=== PATIENT | male | born 1940 | race Caucasian/White ===

== ENCOUNTER 2018-03-07 15:23 | Observation (INO) ==
--- NOTE | 2018-03-07 16:34 | Emergency Department Note ---
Disposition Clinical Impression: Nephrolithiasis, Dizziness Disposition: Still a Patient Condition: Good Referrals: Kj Rodríguez MD [Primary Care Provider] - Forms: ED Satisfaction Letter Dizziness HPI - General Chief Complaint: ED Dizziness Stated Complaint: Dizziness, sinus Time Seen by Provider: 03/07/18 15:38 Source: patient, family Mode of arrival: ambulatory Limitations: no limitations Vital Signs Reviewed: Yes - History of Present Illness HPI Narrative: The patient is a 77 year old male with a history of HTN, HLD, and unspecified dizziness that presents to the ED for dizziness. Per patient's report, He was recently treated for sinusitis with Cefdinir, which he completed on 03/04/18. Over the past two days he has been having intermittent episodes of dizziness that comes on at times when he rolls over in bed, but other times comes on randomly. He denies any association with turning of his head and denies any other exacerbating and alleviating factors. Patient is unsure how long the episodes last and is unable to describe the dizziness at present. Patient get nauseas, diaphoretic, flushed, and feels unsteady walking with the episodes. He has been having intermittent episodes of dizziness over the past year, which he describes those as room spinning, and feel similar to the dizzy episodes he had over the past couple days. He did have a CT a year ago which was unremarkable at that time. He said he was worked up for his dizziness in the past, but was never told the cause and that they said they do not think his symptoms are due to BPPV. Patient also states he continues to have sinus pressure along the frontal and maxillary sinuses distribution regardless of finishing his antibiotic course, as well as feeling "sick," but is unable to describe why he does not feel well. Patient called his PCP Dr. Kj Rodríguez who instructed him to come to the ED to be evaluated. Patient denies fever, chills, changes in vision , chest pain, shortness of breath, dysuria, urinary urgency, urinary frequency, hematuria, constipation, diarrhea, numbness, paresthesias, and liberalizing weakness. Patient also has a history of renal stones, and says he has been having difficulty urinating lately and feels that he may be trying to pass a stone. - Related Data Home Medications Medication Instructions Recorded Confirmed Amlodipine 07/29/16 Aspirin 07/29/16 Atenolol 07/29/16 Crestor 07/29/16 Enalapril Maleate 07/29/16 Tylenol 07/29/16 07/29/16 Previous Rx's Medication Instructions Recorded Albuterol Sulfate [Albuterol 2 puff IH QID 2 Days inhaler 07/29/16 Inhaler] Azithromycin [Azithromycin 6-Tab 250 mg PO PER PKG DI #6 tab 07/29/16 Pack] Benzonatate [Tessalon] 200 mg PO TID PRN #20 capsule 07/29/16 predniSONE [PredniSONE] 20 mg PO BID 5 Days tablet 07/29/16 Meclizine [Antivert] 12.5 mg PO TID PRN #20 tablet 03/17/17 Ondansetron ODT [Zofran ODT] 4 mg SL Q6HR PRN #30 tab.rapdis 03/17/17 Ciprofloxacin [Cipro] 500 mg PO BID #14 tablet 11/20/17 Allergies Allergy/AdvReac Type Severity Reaction Status Date / Time ampicillin Allergy Hives Verified 11/20/17 10:06 Penicillins Allergy Hives Verified 11/20/17 10:06 All systems ED: reviewed and negative except as stated. Review of Systems: As Per HPI Constitutional: Reports: other (diaphoresis). Denies: fever, chills Eyes: Denies: eye pain, vision change ENT ED: Denies: ear pain, throat pain Cardiovascular: Denies: chest pain, palpitations, edema, syncope Respiratory: Denies: cough, dyspnea Gastrointestinal: Reports: nausea. Denies: abdominal pain, vomiting, diarrhea, constipation, melena, hematochezia Genitourinary: Denies: urgency, dysuria, frequency, hematuria Musculoskeletal: Denies: back pain, neck pain Neurological: Reports: headache, abnormal gait (with the dizzy episodes). Denies: weakness, numbness, paresthesias Past Medical History - Past Medical History Medical history: Reports: hyperlipidemia, hypertension, kidney stones, other Surgical history: Reports: herniorrhaphy, other (bilateral rotator cuff repair) Psychiatric history: Reports: no psych history - Social History Smoking Status: Never smoker Smokeless Tobacco Status: No Alcohol use: Reports: none Drug use: Reports: none Physical Exam - General Limitations: no limitations General appearance: alert, in no apparent distress - Head Head exam: atraumatic, normocephalic, normal inspection - Eye Eye exam: Present: normal appearance, PERRL, EOMI. Absent: scleral icterus, conjunctival injection, nystagmus - ENT ENT exam: normal oropharynx, mucous membranes moist, TM's normal bilaterally, normal external ear exam - Neck Neck exam: Present: normal inspection, full ROM, trachea midline - Chest Chest inspection: Present: symmetric chest wall rise - Respiratory Respiratory exam: Present: normal lung sounds bilaterally. Absent: respiratory distress, wheezes - Cardiovascular Cardiovascular exam: Present: regular rate, normal rhythm, normal heart sounds. Absent: systolic murmur, diastolic murmur, rubs, gallop - Neurological Exam Neurological exam: Present: alert, oriented X3, CN II-XII intact, normal gait, other (sensory intact) - Expanded Neurological Exam Patient oriented to: Present: person, place, time Speech: Present: fluid speech Cerebellar function: finger to nose: Normal, heel to maldonado: Normal Motor strength - LUE: 5/5 Motor strength - RUE: 5/5 Motor strength - LLE: 5/5 Motor strength - RLE: 5/5 - Psychiatric Psychiatric exam: Present: normal affect, normal mood - Skin Skin exam: Present: warm, dry, intact, normal color Course Course Narrative: Patient is a 77 year old male that presents with nausea, dizziness, and sinus pressure. ACS, BPPV, posterior cerebellar infarct, and were considered in the differential diagnosis. CBC, BMP, UA, troponin, EKG, chest X-ray, Head CT and abdominal CT were ordered. Vital Signs Temperature 98.2 F 03/07/18 15:31 Pulse Rate 70 03/07/18 15:31 Respiratory Rate 18 03/07/18 15:31 Blood Pressure 154/82 03/07/18 15:31 O2 Sat by Pulse Oximetry 99 03/07/18 15:31 Temperature 98.2 F 03/07/18 15:31 Pulse Rate 67 03/07/18 16:47 Respiratory Rate 18 03/07/18 16:47 Blood Pressure 135/71 03/07/18 16:47 O2 Sat by Pulse Oximetry 95 03/07/18 16:47 Oxygen Delivery Oxygen Delivery Room Air Dizziness - MDM Narrative Medical decision making narrative: Patient has remained hemodynamically stable through out the ED stay. CBC, BMP, UA have showed no significant abnormalities warranting intervention at this time. Troponin was not elevated and EKG shows no signs of acute ischemia, making ACS unlikely at this time. Head CT shows no acute abnormalities. Abdominal CT showed a non-obstructing nephrolithiasis. Pt care transitioned. - Lab Data Result diagrams: 03/07/18 16:41 03/07/18 16:41 Lab Results 03/07/18 03/07/18 03/07/18 Range/Units 16:36 16:41 16:41 WBC 6.2 (4.3-11.1) K/mcL RBC 5.41 (4.19-5.50) M/mcL Hgb 16.8 (12.9-16.9) g/dL Hct 51.5 H (37.5-50.1) % MCV 95.2 (83.0-100.0) fL MCH 31.1 (28.0-33.3) pg MCHC 32.6 (31.6-35.5) g/dL RDW 13.9 (11.5-14.5) % Plt Count 163 (140-400) K/mcL MPV 11.2 (9.4-12.4) fL Immature Gran % 0.2 (0-4) % Seg Neutrophils % 59.6 % Lymphocytes % 30.0 % Monocytes % 6.8 % Eosinophils % 2.6 % Basophils % 0.8 % Neutrophils # 3.7 (1.6-8.9) K/mcL Lymphocytes # 1.9 (0.6-4.6) K/mcL Monocytes # 0.4 (0.0-1.3) K/mcL Eosinophils # 0.2 (0.0-0.6) K/mcL Basophils # 0.1 (0.0-0.2) K/mcL Sodium 135 L (136-145) mEq/L Potassium 4.0 (3.5-5.1) mEq/L Chloride 98 (98-107) mEq/L Carbon Dioxide 29 (23-29) mEq/L BUN 14 (8-23) mg/dL Creatinine 1.01 (0.70-1.30) mg/dL Est GFR ( Amer) > 60 (> 60) Est GFR (Non-Af Amer) > 60 (> 60) BUN/Creatinine Ratio 14 (6-26) Glucose 112 H (70-105) mg/dL Calculated Osmolality 281 (280-300) Calcium 9.8 (8.6-10.3) mg/dL Troponin I < 0.03 (< 0.04) ng/mL Urine Color Yellow (Yellow) Urine Clarity Clear (Clear) Urine pH 6.0 (5.0-8.0) pH Units Ur Specific [place] 1.017 (1.010-1.025) Urine Protein 30 H (Neg-Trace) mg/dL Urine Glucose (UA) Normal (Normal) mg/dL Urine Ketones Negative (Negative) mg/dL Urine Blood Trace H (Negative) Urine Nitrite Negative (Negative) Urine Bilirubin Negative (Negative) Urine Urobilinogen Normal (Normal) mg/dL Ur Leukocyte Esterase Negative (Negative) Urine Microscopic RBC 0-3 (0-3) per hpf Urine Microscopic WBC 0-3 (0-3) per hpf Ur Squamous Epith Cells Few (None-Few) per lpf Urine Bacteria None Seen (None-Few) per hpf Hyaline Casts None Seen (None-Few) per lpf Ur Culture Indicated? NO (NO)
--- NOTE | 2018-03-07 16:47 | Emergency Department Note ---
Disposition Clinical Impression: Nephrolithiasis, Dizziness, Lightheaded Disposition: Admitted As Inpatient Condition: Good Referrals: Kj Rodríguez MD [Primary Care Provider] - Forms: ED Satisfaction Letter Time of Disposition: 19:28 General Adult HPI - General Chief complaint: ED Dizziness Stated complaint: Dizziness, sinus Time Seen by Provider: 03/07/18 15:38 Source: patient, family Mode of arrival: ambulatory Limitations: no limitations Nursing Notes Reviewed: Yes Vital Signs Reviewed: Yes - History of Present Illness HPI Narrative: I have personally seen and evaluated the patient along with the Medical Student. I have reviewed and confirmed the history of present illness, review of systems, family, medical, and surgical history and agree with the documentation except as documented below. HPI/ROS: Patient presenting with lightheadedness, nausea and diaphoresis. Patient states that he has had some sinus pressure and congestion over the last week. States that makes him feel dizzy. He denies a sensation of room spinning , but states that if he rolls over in bed at night, he will feel very lightheaded. Denies any presyncopal type feeling, but states that he just feels "dizzy". Denies any changes in vision or headache. He does have difficulty with ambulation when this happens. It is not onset with sudden movement of his head and seems to occur randomly. He does report that it makes him feel very weak and tired and he intermittently gets nauseated and diaphoretic with it. States he had this happen about a year ago and had a CT of his head that was unremarkable. States she just does not feel right. He also reports that he has a history of multiple kidney stones , one of which his urologist. States that he may not be able to pass. He denies any pain but states he has not had much pain previously. He states that he has been unable to urinate and this is more typical of his pain. As reviewed in the HPI. All other systems reviewed are negative or normal. Pain Scale: 0 - Related Data Home Medications Medication Instructions Recorded Confirmed Amlodipine 07/29/16 Aspirin 07/29/16 Atenolol 07/29/16 Crestor 07/29/16 Enalapril Maleate 07/29/16 Tylenol 07/29/16 07/29/16 Previous Rx's Medication Instructions Recorded Albuterol Sulfate [Albuterol 2 puff IH QID 2 Days inhaler 07/29/16 Inhaler] Azithromycin [Azithromycin 6-Tab 250 mg PO PER PKG DI #6 tab 07/29/16 Pack] Benzonatate [Tessalon] 200 mg PO TID PRN #20 capsule 07/29/16 predniSONE [PredniSONE] 20 mg PO BID 5 Days tablet 07/29/16 Meclizine [Antivert] 12.5 mg PO TID PRN #20 tablet 03/17/17 Ondansetron ODT [Zofran ODT] 4 mg SL Q6HR PRN #30 tab.rapdis 03/17/17 Ciprofloxacin [Cipro] 500 mg PO BID #14 tablet 11/20/17 Allergies Allergy/AdvReac Type Severity Reaction Status Date / Time ampicillin Allergy Hives Verified 11/20/17 10:06 Penicillins Allergy Hives Verified 11/20/17 10:06 Review of Systems: As reviewed in the HPI. All other systems reviewed are negative or normal. Constitutional: Denies: fever, chills Eyes: Denies: eye pain, vision change ENT ED: Denies: ear pain, throat pain Cardiovascular: Denies: chest pain, palpitations, edema, syncope Respiratory: Denies: cough, dyspnea Gastrointestinal: Reports: nausea. Denies: abdominal pain, vomiting, diarrhea, constipation, melena, hematochezia Genitourinary: Denies: urgency, dysuria, frequency, hematuria Musculoskeletal: Denies: back pain, neck pain Neurological: Reports: headache. Denies: weakness, numbness, paresthesias Past Medical History - Past Medical History Attestation: Yes The following information was validated with the patient. Source: patient, old records reviewed Medical history: Reports: hyperlipidemia, hypertension, kidney stones, other Surgical history: Reports: herniorrhaphy, other (bilateral rotator cuff repair) Psychiatric history: Reports: no psych history - Social History Smoking Status: Never smoker Smokeless Tobacco Status: No Alcohol use: Reports: none Drug use: Reports: none Physical Exam CONSTITUTIONAL: [well appearing, alert and in no acute distress] EYES: [EOMI, clear conjunctiva, PERRLA] HENT: [Normocephalic, atraumatic, moist mucus membranes, normal oropharynx] NECK: [normal inspection, full ROM, trachea midline, no obvious swelling] PULMONARY: [normal lung sounds bilaterally, normal chest rise and fall, no respiratory distress or stridor, no wheezes, no rales, no rhonchi CARDIOVASCULAR: [regular rate, regular rhythm, normal heart sounds, + soft systolic murmurs, distal extremities are warm and well perfused] GASTROINSTESTINAL: [soft, non-tender, non-rigid, non-distended, no guarding, no rebound, normal bowel sounds] GENITOURINARY/RECTAL: [deferred] NEUROLOGIC: [Alert, oriented x3, normal speech, moves all extremities, normal gait, cranial nerves II through XII intact, normal cerebellar function] EXTREMITIES: [Normal inspection, full ROM, no tenderness, no pedal edema, normal capillary refill] MUSCULOSKELETAL: [no gross deformities, atraumatic] SKIN: [No cyanosis, no diaphoresis, normal color, warm, no rash] PSYCHIATRIC: [normal mood and affect] - General Limitations: no limitations General appearance: alert, in no apparent distress Course Vital Signs Temperature 98.2 F 03/07/18 15:31 Pulse Rate 70 03/07/18 15:31 Respiratory Rate 18 03/07/18 15:31 Blood Pressure 154/82 03/07/18 15:31 O2 Sat by Pulse Oximetry 99 03/07/18 15:31 Temperature 98.2 F 03/07/18 15:31 Pulse Rate 72 03/07/18 19:21 Respiratory Rate 18 03/07/18 19:21 Blood Pressure 154/89 03/07/18 19:21 O2 Sat by Pulse Oximetry 95 03/07/18 19:21 Oxygen Delivery Oxygen Delivery Room Air Medical Decision Making - Lab Data Result diagrams: 03/07/18 16:41 03/07/18 16:41 Lab Results 03/07/18 03/07/18 03/07/18 Range/Units 16:36 16:41 16:41 WBC 6.2 (4.3-11.1) K/mcL RBC 5.41 (4.19-5.50) M/mcL Hgb 16.8 (12.9-16.9) g/dL Hct 51.5 H (37.5-50.1) % MCV 95.2 (83.0-100.0) fL MCH 31.1 (28.0-33.3) pg MCHC 32.6 (31.6-35.5) g/dL RDW 13.9 (11.5-14.5) % Plt Count 163 (140-400) K/mcL MPV 11.2 (9.4-12.4) fL Immature Gran % 0.2 (0-4) % Seg Neutrophils % 59.6 % Lymphocytes % 30.0 % Monocytes % 6.8 % Eosinophils % 2.6 % Basophils % 0.8 % Neutrophils # 3.7 (1.6-8.9) K/mcL Lymphocytes # 1.9 (0.6-4.6) K/mcL Monocytes # 0.4 (0.0-1.3) K/mcL Eosinophils # 0.2 (0.0-0.6) K/mcL Basophils # 0.1 (0.0-0.2) K/mcL Sodium 135 L (136-145) mEq/L Potassium 4.0 (3.5-5.1) mEq/L Chloride 98 (98-107) mEq/L Carbon Dioxide 29 (23-29) mEq/L BUN 14 (8-23) mg/dL Creatinine 1.01 (0.70-1.30) mg/dL Est GFR ( Amer) > 60 (> 60) Est GFR (Non-Af Amer) > 60 (> 60) BUN/Creatinine Ratio 14 (6-26) Glucose 112 H (70-105) mg/dL Calculated Osmolality 281 (280-300) Calcium 9.8 (8.6-10.3) mg/dL Troponin I < 0.03 (< 0.04) ng/mL Urine Color Yellow (Yellow) Urine Clarity Clear (Clear) Urine pH 6.0 (5.0-8.0) pH Units Ur Specific [place] 1.017 (1.010-1.025) Urine Protein 30 H (Neg-Trace) mg/dL Urine Glucose (UA) Normal (Normal) mg/dL Urine Ketones Negative (Negative) mg/dL Urine Blood Trace H (Negative) Urine Nitrite Negative (Negative) Urine Bilirubin Negative (Negative) Urine Urobilinogen Normal (Normal) mg/dL Ur Leukocyte Esterase Negative (Negative) Urine Microscopic RBC 0-3 (0-3) per hpf Urine Microscopic WBC 0-3 (0-3) per hpf Ur Squamous Epith Cells Few (None-Few) per lpf Urine Bacteria None Seen (None-Few) per hpf Hyaline Casts None Seen (None-Few) per lpf Ur Culture Indicated? NO (NO)
[2018-03-07 16:49] LABS: Basophils # 0.1 K/mcL (0.0-0.2); Basophils % 0.8 %; Eosinophils # 0.2 K/mcL (0.0-0.6); Eosinophils % 2.6 %; Hematocrit 51.5 % (37.5-50.1); Hemoglobin 16.8 g/dL (12.9-16.9); Immature Granulocytes % 0.2 % (0-4); Lymphocytes # 1.9 K/mcL (0.6-4.6); Mean Corpuscular HGB Conc 32.6 g/dL (31.6-35.5); Mean Corpuscular Hemoglobin 31.1 pg (28.0-33.3); Mean Corpuscular Volume 95.2 fL (83.0-100.0); Mean Platelet Volume 11.2 fL (9.4-12.4); Monocytes # 0.4 K/mcL (0.0-1.3); Monocytes % 6.8 %; Neutrophils # 3.7 K/mcL (1.6-8.9); Platelet Count 163 K/mcL (140-400); Red Blood Count 5.41 M/mcL (4.19-5.50); Red Cell Distribution Width 13.9 % (11.5-14.5); Segmented Neutrophils % 59.6 %
[2018-03-07 16:50] LABS: Bilirubin,Urine Negative (Negative); Blood,Urine Trace (Negative); Clarity,Urine Clear (Clear); Color,Urine Yellow (Yellow); Glucose,Urine (UA) Normal (Normal); Ketones,Urine Negative (Negative); Leukocyte Esterase,Urine Negative (Negative); Nitrite,Urine Negative (Negative); Protein,Urine 30 mg/dL (Neg-Trace); Specific Gravity,Urine 1.017 (1.010-1.025); Urobilinogen,Urine Normal (Normal)
[2018-03-07 16:52] LABS: Bacteria,Urine None Seen per hpf (None-Few); Hyaline Casts,Urine None Seen per lpf (None-Few); RBC,Urine 0-3 per hpf (0-3); Squamous Epithelial Cell,Urine Few per lpf (None-Few); WBC,Urine 0-3 per hpf (0-3)
[2018-03-07 17:11] LABS: BUN/Creatinine Ratio 14 (6-26); Blood Urea Nitrogen 14 mg/dL (8-23); Calcium 9.8 mg/dL (8.6-10.3); Carbon Dioxide 29 mEq/L (23-29); Chloride 98 mEq/L (98-107); Glucose 112 mg/dL (70-105); Osmolality,Calculated 281 (280-300); Sodium 135 mEq/L (136-145); eGFR For Non-African Americans > 60 (> 60)
[2018-03-07 17:12] LABS: Troponin I < 0.03 ng/mL (< 0.04)
--- NOTE | 2018-03-07 18:53 | Emergency Department Note ---
Disposition Clinical Impression: Nephrolithiasis, Dizziness, Lightheaded Disposition: Admitted As Inpatient Condition: Good General Adult HPI - General Chief complaint: ED Dizziness Stated complaint: Dizziness, sinus Time Seen by Provider: 03/07/18 15:38 Source: patient, family Mode of arrival: ambulatory Limitations: no limitations - History of Present Illness Pain Scale: 0 - Related Data Home Medications Medication Instructions Recorded Confirmed Aspirin [Lo-Dose Aspirin EC] 81 mg PO DAILY 03/07/18 03/07/18 Atenolol [Tenormin] 50 mg PO DAILY 03/07/18 03/07/18 Enalapril Maleate [Vasotec] 20 mg PO DAILY 03/07/18 03/07/18 Omeprazole [PriLOSEC] 20 mg PO DAILY PRN 03/07/18 03/07/18 Rosuvastatin Calcium [Crestor] 10 mg PO DAILY 03/07/18 03/07/18 amLODIPine [Norvasc] 5 mg PO DAILY 03/07/18 03/07/18 Tamsulosin HCl 0.4 mg PO DAILY 03/08/18 03/08/18 Previous Rx's Medication Instructions Recorded Meclizine [Antivert] 25 mg PO TID PRN #30 tablet 03/09/18 Ondansetron ODT [Zofran ODT] 4 mg SL Q6HR PRN #15 tab.rapdis 03/09/18 Allergies Allergy/AdvReac Type Severity Reaction Status Date / Time ampicillin Allergy Hives Verified 03/07/18 22:19 Penicillins Allergy Hives Verified 03/07/18 22:19 Constitutional: Reports: other (diaphoresis). Denies: fever, chills Eyes: Denies: eye pain, vision change ENT ED: Denies: ear pain, throat pain Cardiovascular: Denies: chest pain, palpitations, edema, syncope Respiratory: Denies: cough, dyspnea Gastrointestinal: Reports: nausea. Denies: abdominal pain, vomiting, diarrhea, constipation, melena, hematochezia Genitourinary: Denies: urgency, dysuria, frequency, hematuria Musculoskeletal: Denies: back pain, neck pain Neurological: Reports: headache, abnormal gait (with the dizzy episodes). Denies: weakness, numbness, paresthesias Past Medical History - Past Medical History Medical history: Reports: hyperlipidemia, hypertension, kidney stones, other Surgical history: Reports: herniorrhaphy, other (bilateral rotator cuff repair) Psychiatric history: Reports: no psych history - Social History Smoking Status: Never smoker Smokeless Tobacco Status: No Alcohol use: Reports: none Drug use: Reports: none Physical Exam - General Limitations: no limitations General appearance: alert, in no apparent distress Course Vital Signs Temperature 98.2 F 03/07/18 15:31 Pulse Rate 70 03/07/18 15:31 Respiratory Rate 18 03/07/18 15:31 Blood Pressure 154/82 03/07/18 15:31 O2 Sat by Pulse Oximetry 99 03/07/18 15:31 Temperature 97.7 F 03/09/18 07:34 Pulse Rate 60 03/09/18 07:34 Respiratory Rate 16 03/09/18 07:34 Blood Pressure 107/68 03/09/18 07:34 O2 Sat by Pulse Oximetry 95 03/09/18 09:00 Oxygen Delivery Oxygen Delivery Room Air Medical Decision Making - Lab Data Result diagrams: 03/08/18 03:48 03/08/18 03:48 Lab Results 03/07/18 03/07/18 03/07/18 Range/Units 16:36 16:41 16:41 WBC 6.2 (4.3-11.1) K/mcL RBC 5.41 (4.19-5.50) M/mcL Hgb 16.8 (12.9-16.9) g/dL Hct 51.5 H (37.5-50.1) % MCV 95.2 (83.0-100.0) fL MCH 31.1 (28.0-33.3) pg MCHC 32.6 (31.6-35.5) g/dL RDW 13.9 (11.5-14.5) % Plt Count 163 (140-400) K/mcL MPV 11.2 (9.4-12.4) fL Immature Gran % 0.2 (0-4) % Seg Neutrophils % 59.6 % Lymphocytes % 30.0 % Monocytes % 6.8 % Eosinophils % 2.6 % Basophils % 0.8 % Neutrophils # 3.7 (1.6-8.9) K/mcL Lymphocytes # 1.9 (0.6-4.6) K/mcL Monocytes # 0.4 (0.0-1.3) K/mcL Eosinophils # 0.2 (0.0-0.6) K/mcL Basophils # 0.1 (0.0-0.2) K/mcL Sodium 135 L (136-145) mEq/L Potassium 4.0 (3.5-5.1) mEq/L Chloride 98 (98-107) mEq/L Carbon Dioxide 29 (23-29) mEq/L BUN 14 (8-23) mg/dL Creatinine 1.01 (0.70-1.30) mg/dL Est GFR ( Amer) > 60 (> 60) Est GFR (Non-Af Amer) > 60 (> 60) BUN/Creatinine Ratio 14 (6-26) Glucose 112 H (70-105) mg/dL Calculated Osmolality 281 (280-300) Calcium 9.8 (8.6-10.3) mg/dL Troponin I < 0.03 (< 0.04) ng/mL Urine Color Yellow (Yellow) Urine Clarity Clear (Clear) Urine pH 6.0 (5.0-8.0) pH Units Ur Specific [place] 1.017 (1.010-1.025) Urine Protein 30 H (Neg-Trace) mg/dL Urine Glucose (UA) Normal (Normal) mg/dL Urine Ketones Negative (Negative) mg/dL Urine Blood Trace H (Negative) Urine Nitrite Negative (Negative) Urine Bilirubin Negative (Negative) Urine Urobilinogen Normal (Normal) mg/dL Ur Leukocyte Esterase Negative (Negative) Urine Microscopic RBC 0-3 (0-3) per hpf Urine Microscopic WBC 0-3 (0-3) per hpf Ur Squamous Epith Cells Few (None-Few) per lpf Urine Bacteria None Seen (None-Few) per hpf Hyaline Casts None Seen (None-Few) per lpf Ur Culture Indicated? NO (NO) Attestation Statement - Attestation Attestation: I examined this patient and my medical decision-making was reviewed with the Resident Physician. I agree with the documented findings, disposition and treatment plan as described except to the extent set forth below. Patient with intermittent episodes of diaphoresis, nausea and dizziness. Denies vertigo, denies syncope or presyncope. Denies chest pain. He has a normal neurological exam. No obvious ischemia on his EKG. I am concerned this may be an anginal equivalent. He also describes his dizziness poorly, it is certainly possible that there is a problem in the posterior fossa that could be causing some of these symptoms. At this point, I believe the patient requires admission for observation and further testing.
[2018-03-07] MEDS ORDERED: Gadolinium Contrast Agent (WT Based) IV PRN (20:11)
[2018-03-07] MEDS ORDERED: Ondansetron ODT 4 MG TAB.RAPDIS SL PRN (20:24)
--- NOTE | 2018-03-07 20:33 | Internal Med History&Physical ---
Date of Encounter: 03/07/18 Time of Encounter: 20:30 Internal Medicine - H&P: HPI Admitted From: Home Plans for Post Hospital Care: Home History of present illness: Jonn Moreno is a 77-year-old man with a history of hyperlipidemia, hypertension and nephrolithiasis who presents to the emergency room with a complaint of dizziness. States that he has been having dizziness and vertigo for many months starting this year but cannot specify when exactly it commenced. He says he initially since that the room was spinning and cannot specify for how long it lasts but is usually accompanied by a weird sensation in his stomach as well. He does feel as though it worsens with positional movements of his head and neck moving side to side in bed and sometimes when getting up from bed as well. He denies associated chest pain, dyspnea or diaphoresis. He denies a history of smoking use or illicit drug use. Surgical history remarkable for bilateral rotator cuff repair and herniorrhaphy. No psychiatric history obtained. He denies any history of heart disease or cerebrovascular disease in the past. He reports adherence to his antihypertensives. This time he is in no acute distress and feels stable. In the ER he had a head CT done which was unremarkable and abdominal imaging also done due to his complaint of this nausea-type sensation in his stomach. Lab work was grossly unremarkable. He is admitted for further observation and neurology assessment. Past Med Surg Social Fam HX - Past Medical History Medical history: hyperlipidemia, hypertension, kidney stones, other Psychiatric history: no psych history - Past Surgical History Surgical History: herniorrhaphy, other (bilateral rotator cuff repair) - Social History Smoking Status: Never smoker Smokeless Tobacco Status: No Alcohol use: none Drug use: none Internal Medicine - H&P: Meds Albuterol Sulfate [Albuterol Inhaler] 2 puff IH QID 2 Days inhaler 07/29/16 [Rx ] Amlodipine 07/29/16 [History] Aspirin 07/29/16 [History] Atenolol 07/29/16 [History] Azithromycin [Azithromycin 6-Tab Pack] 250 mg PO PER PKG DI #6 tab 07/29/16 [Rx] Benzonatate [Tessalon] 200 mg PO TID PRN #20 capsule 07/29/16 [Rx] Crestor 07/29/16 [History] Enalapril Maleate 07/29/16 [History] Tylenol 07/29/16 [History] predniSONE [PredniSONE] 20 mg PO BID 5 Days tablet 07/29/16 [Rx] Meclizine [Antivert] 12.5 mg PO TID PRN #20 tablet 03/17/17 [Rx] Ondansetron ODT [Zofran ODT] 4 mg SL Q6HR PRN #30 tab.rapdis 03/17/17 [Rx] Ciprofloxacin [Cipro] 500 mg PO BID #14 tablet 11/20/17 [Rx] 3 Allergy/AdvReac Type Severity Reaction Status Date / Time ampicillin Allergy Hives Verified 11/20/17 10:06 Penicillins Allergy Hives Verified 11/20/17 10:06 All Systems PM: A 10-system review of systems was performed and is negative for pertinent findings except as documented above in the HPI. - Constitutional Vitals: Temp Pulse Resp BP Pulse Ox 98.2 F 72 18 138/85 95 03/07/18 15:31 03/07/18 19:21 03/07/18 20:13 03/07/18 20:13 03/07/18 19:21 Exam: Vitals: Reviewed General: Well-developed male lying comfortably in bed in no acute distress Skin: Warm and supple HEENT: Moist mucous membranes. No conjunctivae pallor. No nystagmus. EOMI. PERRLA. Neck: No lymphadenopathy. No JVD. No carotid bruits. No palpable thyroid. Chest: Normal thoracic expansion. Normal breath sounds. Clear to auscultation. Heart: Normal S1 & S2; rhythmic. No rubs or murmurs. Abdomen: Non-distended, soft and non-tender to palpation. No peritoneal reaction. Extremities: No clubbing, cyanosis or edema. No calf tenderness. Normal distal pulses. Neurological: Awake, alert and oriented to person, place and time. No focal deficits. Romberg negative. Psych: Affect appropriate. Internal Med - H&P Results - Labs CBC & Chem 7: 03/07/18 16:41 03/07/18 16:41 - Assessment and plan (1) Dizziness Current Visit: Yes Status: Acute Assessment and plan: Unclear etiology. Based on his reported symptoms and my physical examination, it may be benign positional vertigo. However given his age and risk factors, it would be prudent to rule out a posterior circulation infarction there MRI brain will be obtained. He will benefit from neurology consultation as well. Remain on fall precautions, continue meclizine prn. (2) Hypertension Current Visit: Yes Status: Acute Assessment and plan: Well controlled for now. Will resume once his antihypertensive agents are confirmed. Qualifiers: Hypertension type: essential hypertension Qualified Code(s): I10 - Essential (primary) hypertension (3) Hyperlipidemia Current Visit: Yes Status: Acute Assessment and plan: Reported. Will check lipid panel and should continue statin therapy per primary physician. Qualifiers: Hyperlipidemia type: unspecified Qualified Code(s): E78.5 - Hyperlipidemia , unspecified (4) Nephrolithiasis Current Visit: Yes Status: Chronic Assessment and plan: Asymptomatic and non-obstructive. Should have urology f/u as OP. (5) DVT prophylaxis Current Visit: Yes Status: Acute Assessment and plan: SubQ heparin. - Time Spent With Patient Total time spent is greater than 50% in coordination of care (as documented) at patient's floor/unit and/or counseling patient: Greater than 35 minutes
[2018-03-08] MEDS: *HR* Heparin 5,000 UNIT/ML VIAL SQ SCH ×4 (00:30→21:06)
[2018-03-08 04:26] LABS: Basophils # 0.1 K/mcL (0.0-0.2); Basophils % 0.7 %; Eosinophils # 0.1 K/mcL (0.0-0.6); Eosinophils % 1.4 %; Hematocrit 50.4 % (37.5-50.1); Hemoglobin 16.8 g/dL (12.9-16.9); Immature Granulocytes % 0.2 % (0-4); Lymphocytes # 2.9 K/mcL (0.6-4.6); Lymphocytes % 31.3 %; Mean Corpuscular HGB Conc 33.3 g/dL (31.6-35.5); Mean Corpuscular Hemoglobin 31.5 pg (28.0-33.3); Mean Corpuscular Volume 94.4 fL (83.0-100.0); Mean Platelet Volume 11.3 fL (9.4-12.4); Monocytes # 0.8 K/mcL (0.0-1.3); Monocytes % 8.8 %; Neutrophils # 5.3 K/mcL (1.6-8.9); Platelet Count 179 K/mcL (140-400); Red Blood Count 5.34 M/mcL (4.19-5.50); Red Cell Distribution Width 14.4 % (11.5-14.5); Segmented Neutrophils % 57.6 %
[2018-03-08 04:51] LABS: Alanine Aminotransferase 25 Units/L (7-52); Albumin 4.6 g/dL (3.5-5.7); Albumin/Globulin Ratio 1.5 (1.1-2.2); Alkaline Phosphatase 69 Units/L (34-104); Aspartate Amino Transferase 23 Units/L (13-39); BUN/Creatinine Ratio 17 (6-26); Bilirubin,Total 0.8 mg/dL (0.3-1.0); Blood Urea Nitrogen 18 mg/dL (8-23); Calcium 9.8 mg/dL (8.6-10.3); Carbon Dioxide 27 mEq/L (23-29); Chloride 99 mEq/L (98-107); Chol/HDL Ratio 3.3 (0-4.9); Cholesterol 173 mg/dL (< 200); Globulin 3.1 g/dL (2.4-3.5); Glucose 131 mg/dL (70-105); HDL Cholesterol 52 mg/dL (40-59); LDL Cholesterol,Calculated 100 mg/dL (0-99); Osmolality,Calculated 286 (280-300); Potassium 3.9 mEq/L (3.5-5.1); Sodium 136 mEq/L (136-145); Total Protein 7.7 g/dL (6.4-8.9); Triglycerides 104 mg/dL (< 150); eGFR For Non-African Americans > 60 (> 60)
[2018-03-08 05:03] LABS: Thyroid Stimulating Hormone 3.908 mcIU/mL (0.340-5.600)
[2018-03-08 07:07] LABS: Estimated Average Glucose 126 mg/dl
--- NOTE | 2018-03-08 09:23 | Internal Med Progress Note ---
Hospitalist Progress Note - Encounter Date of Encounter: 03/08/18 Time of Encounter: 09:19 - Subjective Interval History: Patient seen and evaluated at bedside, reports that he still feels dizzy and at some point last night and this morning he felt like the room was spinning around. Denies nausea but reports GERD-like symptoms. Denies chest pain, shortness of breath. - Exam Vitals: Temp Pulse Resp BP Pulse Ox 97.8 F 78 18 130/78 95 03/08/18 07:17 03/08/18 07:17 03/08/18 07:17 03/08/18 07:17 03/08/18 07:17 Exam: General: Patient is alert, oriented x4, no acute distress Head: atraumatic, normocephalic, Eye: normal appearance, PERRL, no scleral icterus, no conjunctival injection ENT: mucous membranes moist, normal external ear exam Neck: normal inspection, trachea midline, full ROM, no carotid bruits Respiratory: Clear to auscultation bilaterally, no wheezing, rales or crackles. Cardiovascular: RRR, normal s1 and s2, No rubs, gallops, or murmors. Abdomen: Obese, Bowel sounds present normoactive x-4 quadrants. Abdomen is soft , nondistended. No guarding or rebound. Musculoskeletal: Spontaneously moving all extremities. no edema, no calf tenderness Neuro: Alert and oriented x4. Cranial nerves 2-12 is intact. Not aphasic, gait is steady, rapid hand movements intact, [id number] intact. Psych: Patient's affect is normal - Assessment and Plan (1) Dizziness Current Visit: Yes Status: Acute Assessment and Plan: Possible secondary to Benign Positional vertigo. As per patient he saw a vertigo specialist about a year ago when he started experiencing Dizziness spells. At that time he was sent to a vertigo center where he had therapy which resolved his symptoms. MRI brain done in this admission: No acute intra-cranial process. Plan As patient continues to feel dizzy, will increase Meclizine to 25mg/PO TID ENT consulted will follow recommendations (2) Hypertension Current Visit: Yes Status: Acute Assessment and Plan: Blood pressure is well controlled. Continue Amlodipine, atenolol and lisinopril. will continue monitoring for adjustment if needed. (3) Hyperlipidemia Current Visit: Yes Status: Acute Assessment and Plan: Continue atorvastatin 20 mg by mouth daily. (4) Nephrolithiasis Current Visit: Yes Status: Chronic (5) DVT prophylaxis Current Visit: Yes Status: Acute Assessment and Plan: On heparin 5000 units subcutaneous every 8 hours for DVT prophylaxis. - Summary of Assessment and Plan Summary of Assessment and Plan: Patient continues to feel dizzy, meclizine dose increased. Possible discharge tomorrow morning. - Time Spent with Patient Total time spent is greater than 50% in coordination of care (as documented) at patient's floor/unit and/or counseling patient: 25 - 35 minutes Plan of Care Discussed with: patient (the family and Nurse.) Internal Medicine: Result - Labs CBC & Chem 7: 03/08/18 03:48 03/08/18 03:48 Labs: Short CBC 03/08/18 Range/Units 03:48 WBC 9.1 (4.3-11.1) K/mcL Hgb 16.8 (12.9-16.9) g/dL Hct 50.4 H (37.5-50.1) % Plt Count 179 (140-400) K/mcL Neutrophils # 5.3 (1.6-8.9) K/mcL BMP 03/08/18 03:48 Sodium 136 Potassium 3.9 Chloride 99 Carbon Dioxide 27 BUN 18 Creatinine 1.07 Glucose 131 H Calcium 9.8 Liver Function 03/08/18 Range/Units 03:48 Total Bilirubin 0.8 (0.3-1.0) mg/dL AST 23 (13-39) Units/L ALT 25 (7-52) Units/L Alkaline Phosphatase 69 (34-104) Units/L Albumin 4.6 (3.5-5.7) g/dL - Impressions Impressions Brain MRI 03/07/18 20:09 IMPRESSION: Mild multifocal small-vessel ischemic change No acute hemorrhage. No acute infarct. No focal significant arterial narrowing in the head. No aneurysm. No focal significant arterial narrowing in the neck D/ / Tico Salas / Tico Salas Interpreting Provider: Tico Salas Head MRA 03/07/18 20:11 IMPRESSION: Mild multifocal small-vessel ischemic change No acute hemorrhage. No acute infarct. No focal significant arterial narrowing in the head. No aneurysm. No focal significant arterial narrowing in the neck D/ / Tico Salas / Tico Salas Interpreting Provider: Tico Salas Neck MRA 03/07/18 20:11 IMPRESSION: Mild multifocal small-vessel ischemic change No acute hemorrhage. No acute infarct. No focal significant arterial narrowing in the head. No aneurysm. No focal significant arterial narrowing in the neck D/ / Tico Salas / Tico Salas Interpreting Provider: Tico Salas Consult Discharge Plan - Plan Referrals: Anne,Kj Colon MD [Primary Care Provider] - (2) Hypertension Qualifiers: Hypertension type: essential hypertension Qualified Code(s): I10 - Essential (primary) hypertension (3) Hyperlipidemia Qualifiers: Hyperlipidemia type: unspecified Qualified Code(s): E78.5 - Hyperlipidemia, unspecified
[2018-03-08] MEDS: amLODIPine 5 MG TABLET PO SCH (10:00)
[2018-03-08] MEDS: Aspirin Enteric Coated 81 MG Tablet PO SCH (10:00)
[2018-03-08] MEDS: Lisinopril 20 MG TABLET PO SCH (10:01)
--- NOTE | 2018-03-08 11:52 | Neurology - Consult Note ---
Date of Encounter: 03/08/18 Time of Encounter: 08:00 History of Present Illness Chief complaint: diziness and nasuea HPI: Mr. Moreno is a 77 year old male with PMH significant for BPPV, HTN who presented to ER with recurrent dizziness and nausea. Patient interviewed in the presence of his . He has history of BPPV and had been evaluated with ENT and has had three sessions of vestibular rehab in the past. He reports spells of room spinning sensation usually occurs when he turned his head to the right side, or if turns to left and then right would cause the vertigo. The symptoms usually occur and he would return his head and keep still and then the vertigo would disappear. This time he also has some headache, neck pain, watery eyes and thought to be sinus infection and was given antibiotics for about 10 days. MRI of brain, MRA of brain and neck showed no acute changes. Mild small vessel ischemia reported. Patient is resting in the chair comfortably. He states that when he moves he feels mildly nauseated. But no significant dizziness when keeping still. He has right sided tinnitus Past Med Surg Social Fam HX - Past Medical History Medical history: hyperlipidemia, hypertension, kidney stones, other Psychiatric history: no psych history - Past Surgical History Surgical History: herniorrhaphy, other - Social History Smoking Status: Never smoker Smokeless Tobacco Status: No Alcohol use: none Drug use: none - Family History Father Living Status: Cause of : [place] Hx Family Cardiac Disorders: Yes Mother Living Status: Cause of : luekemia Medications and Allergies Aspirin [Lo-Dose Aspirin EC] 81 mg PO DAILY 03/07/18 [History] Atenolol [Tenormin] 50 mg PO DAILY 03/07/18 [History] Enalapril Maleate [Vasotec] 20 mg PO DAILY 03/07/18 [History] Omeprazole [PriLOSEC] 20 mg PO DAILY PRN 03/07/18 [History] Rosuvastatin Calcium [Crestor] 10 mg PO DAILY 03/07/18 [History] amLODIPine [Norvasc] 5 mg PO DAILY 03/07/18 [History] Tamsulosin HCl 0.4 mg PO DAILY 03/08/18 [History] 3 Allergy/AdvReac Type Severity Reaction Status Date / Time ampicillin Allergy Hives Verified 09/27/18 22:19 Penicillins Allergy Hives Verified 03/07/18 22:19 All Systems: The remainder of the systems were reviewed and are negative Physical Examination - Vital Signs Vital Signs: Initial Vital Signs Temp Pulse Resp BP Pulse Ox 98.2 F 70 18 154/82 99 03/07/18 15:31 03/07/18 15:31 03/07/18 15:31 03/07/18 15:31 03/07/18 15:31 - Constitutional General appearance: comfortable - Neurologic Sensorimotor examination: intact Detailed motor examination: full strength in all major muscle groups Motor examination - right side: 5/5: deltoids, biceps, triceps, wrist flexion, wrist extension, clay artisan, hip flexors, tibialis Anterior, quadriceps, toe extension (EHL), plantarflexion Motor examination - left side: 5/5: deltoids, biceps, triceps, wrist flexion, wrist extension, hip flexors, clay artisan, quadriceps, tibialis Anterior, toe extension (EHL), plantarflexion Results - Laboratory Findings CBC and BMP: 03/08/18 03:48 03/08/18 03:48 Abnormal lab findings: Abnormal lab results Hct 50.4 % (37.5-50.1) H 03/08/18 03:48 Glucose 131 mg/dL (70-105) H 03/08/18 03:48 Hemoglobin A1c 6.0 % (-5.6) H 03/08/18 03:48 LDL Cholesterol, Calc 100 mg/dL (0-99) H 03/08/18 03:48 Urine Protein 30 mg/dL (Neg-Trace) H 03/07/18 16:36 Urine Blood Trace (Negative) H 03/07/18 16:36 Consult Discharge Plan - Plan Referrals: Kj Rodríguez MD [Primary Care Provider] -
--- NOTE | 2018-03-08 13:09 | Neurology - Consult Note ---
Date of Encounter: 03/08/18 Time of Encounter: 11:00 Assessment and Plan (1) Dizziness Current Visit: Yes Status: Acute Patient has been experiencing recurrent episodes of vertigo associated with nausea, with right tinnitus. 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 Symptoms are most consistent with BPPV, and other intermittent vestibular dysfunction also possible such as Meniere syndrome although BPPV appears more likely. He is on Meclizine now. Will continue that and he should have ENT follow up, hearing testing VNG testing and may benefit from vestibular rehab Will sign off at this time. Please call if any questions History of Present Illness Chief complaint: Dizziness nausea HPI: Chief complaint: diziness and nasuea HPI: Mr. Moreno is a 77 year old male with PMH significant for BPPV, HTN who presented to ER with recurrent dizziness and nausea. Patient interviewed in the presence of his . He has history of BPPV and had been evaluated with ENT and has had three sessions of vestibular rehab in the past. He reports spells of room spinning sensation usually occurs when he turned his head to the right side, or if turns to left and then right would cause the vertigo. The symptoms usually occur and he would return his head and keep still and then the vertigo would disappear. This time he also has some headache, neck pain, watery eyes and thought to be sinus infection and was given antibiotics for about 10 days. MRI of brain, MRA of brain and neck showed no acute changes. Mild small vessel ischemia reported. Patient is resting in the chair comfortably. He states that when he moves he feels mildly nauseated. But no significant dizziness when keeping still. He has right sided tinnitus. Past Med Surg Social Fam HX - Past Medical History Medical history: hyperlipidemia, hypertension, kidney stones, other Psychiatric history: no psych history - Past Surgical History Surgical History: herniorrhaphy, other - Social History Smoking Status: Never smoker Smokeless Tobacco Status: No Alcohol use: none Drug use: none - Family History Father Living Status: Cause of : [place] Hx Family Cardiac Disorders: Yes Mother Living Status: Cause of : luekemia Medications and Allergies Aspirin [Lo-Dose Aspirin EC] 81 mg PO DAILY 03/07/18 [History] Atenolol [Tenormin] 50 mg PO DAILY 03/07/18 [History] Enalapril Maleate [Vasotec] 20 mg PO DAILY 03/07/18 [History] Omeprazole [PriLOSEC] 20 mg PO DAILY PRN 03/07/18 [History] Rosuvastatin Calcium [Crestor] 10 mg PO DAILY 03/07/18 [History] amLODIPine [Norvasc] 5 mg PO DAILY 03/07/18 [History] Tamsulosin HCl 0.4 mg PO DAILY 03/08/18 [History] 3 Allergy/AdvReac Type Severity Reaction Status Date / Time ampicillin Allergy Hives Verified 03/07/18 22:19 Penicillins Allergy Hives Verified 03/07/18 22:19 All Systems: The remainder of the systems were reviewed and are negative Physical Examination - Vital Signs Vital Signs: Initial Vital Signs Temp Pulse Resp BP Pulse Ox 98.2 F 70 18 154/82 99 03/07/18 15:31 03/07/18 15:31 03/07/18 15:31 03/07/18 15:31 03/07/18 15:31 - Constitutional General appearance: comfortable - Neurologic Sensorimotor examination: intact Detailed motor examination: grossly full strength in all extremities Motor examination - right side: 5/5: deltoids, biceps, triceps, wrist flexion, wrist extension, servicenow administrator, hip flexors, tibialis Anterior, quadriceps, toe extension (EHL), plantarflexion Motor examination - left side: 5/5: deltoids, biceps, triceps, wrist flexion, wrist extension, hip flexors, servicenow administrator, quadriceps, tibialis Anterior, toe extension (EHL), plantarflexion Detailed sensory examination: intact Posture: other (None) Reflex and gait examination: intact Reflexes: Biceps: 2+, Triceps: 2+, Brachioradialis: 2+, Patella: 2+, Achilles: 2 + Mental Status Examination: awake, alert, oriented to person, oriented to place, oriented to time, follows commands appropriately, answers questions appropriately, no agnosia, no aphasia, no aproxia Cranial nerve examination: PERRL, EOMI (No nystagmus noted), visual varela intact, corneal reflexes brisk symmetrically, sensory to face intact, mastication intact, no facial asymmetry is present, no dysarthria, hearing is intact symmetrically, soft palate elevates bilaterally upon phonation, gag reflex intact, flexes SCM and trapezius muscles symmetrically with full power, tongue protrudes midline, no atrophy or facial fasiculations present Results - Laboratory Findings CBC and BMP: 03/08/18 03:48 03/08/18 03:48 Abnormal lab findings: Abnormal lab results Hct 50.4 % (37.5-50.1) H 03/08/18 03:48 Glucose 131 mg/dL (70-105) H 03/08/18 03:48 Hemoglobin A1c 6.0 % (-5.6) H 03/08/18 03:48 LDL Cholesterol, Calc 100 mg/dL (0-99) H 03/08/18 03:48 Urine Protein 30 mg/dL (Neg-Trace) H 03/07/18 16:36 Urine Blood Trace (Negative) H 03/07/18 16:36 Consult Discharge Plan - Plan Referrals: Kj Rodríguez MD [Primary Care Provider] -
--- NOTE | 2018-03-08 16:29 | ENT - Consult Note ---
Date of Encounter: 03/08/18 Time of Encounter: 16:25 Assessment and Plan (1) Dizziness Current Visit: Yes Status: Acute The patient states that he is dizzy when he turns his head to the side right or left ear when he looks up and gets up quickly. He can have dizziness when lying down and getting up quickly or when he is moving his head when he is walking. He does not have any evidence of benign positional vertigo on his Yong- Hallpike exam today on either side. I do not feel he has benign positional vertigo now as an etiology for his dizziness although he may have had a history of this in the past. 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 He would benefit from having vestibular therapy focusing on treatment for his cervicogenic dizziness. He does not have Meniere's disease as he has no change in his tinnitus or hearing during the dizziness episodes. Also he does not describe true vertigo when the episodes happen. He can take the meclizine as symptomatic treatment for his dizziness but I have discussed in detail with his and the patient that the meclizine will not cure his dizziness. I feel that he would be significantly helped by doing vestibular therapy as an outpatient. He states that he has not had any dizziness today. However, I did discuss with him and his that he will have episodes of dizziness upon discharge which should improve as he does the vestibular therapy as an outpatient. He understands that the meclizine will not cure his dizziness and that that therapy will help him. I will defer to the primary care physician to schedule him for his vestibular therapy. I will sign off. please call me if you have any questions. (2) Tinnitus of both ears Current Visit: Yes Status: Acute The patient states that he has had tinnitus in both of his ears for several years now. It has not changed at all in the last several years. He also states that his hearing has been stable and unchanged. He would benefit from an audiogram/hearing test as an outpatient. I recommend that he be scheduled for the audiogram as an outpatient upon discharge. He also should be following up with the ENT service as an outpatient after the audiogram is done to discuss the results. I have discussed the above recommendations with the patient and his in detail as well as given them written instructions. By he can go home from my standpoint to do vestibular therapy as an outpatient. I would have again discussed with the patient has that he will have dizziness episodes until he starts the vestibular therapy and completes it. He has been cautioned to not climb ladders or do any activity where he may injure himself if he becomes dizzy. He can go home with meclizine as needed for when the dizziness and nausea are more severe. (3) Allergic rhinitis Current Visit: Yes Status: Acute The patient states that he does have runny nose where he has to blow his nose in the morning and during the day. He does not have any postnasal drip. He notices that his symptoms are worse whenever he is cutting the [place] outside. I discussed with the patient that he can use a nasal steroid spray like fluticasone nasal spray daily and that will help with his rhinorrhea symptoms. The patient has decided that they do not want to be treated with that medication since it does not bother him to blow his nose. Qualifiers: Allergic rhinitis trigger: other Allergic rhinitis seasonality: unspecified Qualified Code(s): J30.89 - Other allergic rhinitis History of Present Illness Consult date: 03/08/18 Reason for ENT Consult: other (dizziness) Requesting physician: Emerald Hsieh History of present illness: Mr. Moreno is a 77 year old male with PMH significant for BPPV, HTN who presented to ER two days ago with a complaint of 2 weeks of feeling lightheaded and nauseated. He states that this has been intermittent and it usually happens at night when he is rolling over in bed or during the day when he is walking. He says that sometimes he feels that the room is moving but most of the time he is lightheaded. She saw his primary care doctor who treated him for sinusitis with a course of antibiotics. He did not improve after taking the antibiotics and was told by his doctor that if he did not get better he should go to the emergency room. He had another episode of dizziness approximately 2 days ago with a headache and feeling of pressure on the top of his head going back to the hospital that is. He denied any fever. He did have some nausea when he felt lightheaded. He had no change in hearing and no change in his tinnitus. He has had bilateral tinnitus for many years which does not change when he has his episodes of dizziness. He also states that his hearing is unchanged and does not fluctuate when he has dizziness. He does have a history of being treated for benign positional vertigo many years ago and was treated with vestibular therapy and improved. He says that when he feels lightheaded if he lies still the sensation goes away. He says that the feeling last sometimes several seconds to minutes but never the entire day. He does have rhinorrhea but no patent postnasal drip. He also does not complain of facial pressure or pain. He has no nasal congestion. He was seen in emergency room and CT head was normal with no evidence of mucosal thickening of the paranasal sinuses. He then underwent an MRI of the brain, MRA of the neck which showed small vessel ischemic disease but the carotid and vestibular arteries were patent. Neurology evaluated the patient and did not feel he had any neurologic cause for his dizziness and recommended ENT evaluation for benign positional vertigo or Meniere's disease. He does complain of a stiff neck and knows that he has some cervical spine disease. Past Med Surg Social Fam HX - Past Medical History Medical history: hyperlipidemia, hypertension, kidney stones, other Psychiatric history: no psych history - Past Surgical History Surgical History: herniorrhaphy, other - Social History Smoking Status: Never smoker Smokeless Tobacco Status: No Alcohol use: none Drug use: none - Family History Father Living Status: Cause of : [place] Hx Family Cardiac Disorders: Yes Mother Living Status: Cause of : luekemia Medications and Allergies Aspirin [Lo-Dose Aspirin EC] 81 mg PO DAILY 03/07/18 [History] Atenolol [Tenormin] 50 mg PO DAILY 03/07/18 [History] Enalapril Maleate [Vasotec] 20 mg PO DAILY 03/07/18 [History] Omeprazole [PriLOSEC] 20 mg PO DAILY PRN 03/07/18 [History] Rosuvastatin Calcium [Crestor] 10 mg PO DAILY 03/07/18 [History] amLODIPine [Norvasc] 5 mg PO DAILY 03/07/18 [History] Tamsulosin HCl 0.4 mg PO DAILY 03/08/18 [History] 3 Allergy/AdvReac Type Severity Reaction Status Date / Time ampicillin Allergy Hives Verified 03/07/18 22:19 Penicillins Allergy Hives Verified 03/07/18 22:19 ENT - ROS All systems PM: reviewed and no additional remarkable complaints except as stated (Bilateral tinnitus) ENT Exam Initial Vital Signs Temp Pulse Resp BP Pulse Ox 98.2 F 70 18 154/82 99 03/07/18 15:31 03/07/18 15:31 03/07/18 15:31 03/07/18 15:31 03/07/18 15:31 - Additional Findings Normocephalic, atraumatic Ears: Normal. As bilaterally, the external auditory canals are normal bilaterally, the tympanic membranes are normal bilaterally, the middle ear spaces are clear Nares: Normal nasal dorsum. Normal ala and vestibule. The septum is mildly deviated, the mucosa is normal, they are inferior turbinates are normal. There is no purulence or mucus seen in the nasal cavities bilaterally. op/oc: Normal lips teeth and gums, the buccal mucosa is normal. The hard and soft palate are normal. The tongue is mobile with no masses. The mucosa is normal. Floor mouth is soft without mucosal lesion. The posterior pharynx is normal. Neck: The patient has slightly decreased range of motion to turning his head right and left. However he has good strength in his neck. There are no masses. The trachea is midline. There is no crepitance. There is no lymphadenopathy. The thyroid is not enlarged. There are no thyroid masses. Neurologic exam: Cranial nerves II through XII are intact bilaterally. The facial nerve is symmetric bilaterally. The finger to nose and rapid alternating movements are normal. Gait is normal. Romberg is negative. [place]-Hallpike exam is negative bilaterally. There is no dizziness or rotary nystagmus with the Yong-Hallpike exam on either side. The patient does state that he feels lightheaded when he sits up from lying down. However there is no nystagmus when he sits up from lying down. Exam Initial Vital Signs Temp Pulse Resp BP Pulse Ox 98.2 F 70 18 154/82 99 03/07/18 15:31 03/07/18 15:31 03/07/18 15:31 03/07/18 15:31 03/07/18 15:31 Results - Labs 03/08/18 03:48 03/08/18 03:48 Abnormal lab results Hct 50.4 % (37.5-50.1) H 03/08/18 03:48 Glucose 131 mg/dL (70-105) H 03/08/18 03:48 Hemoglobin A1c 6.0 % (-5.6) H 03/08/18 03:48 LDL Cholesterol, Calc 100 mg/dL (0-99) H 03/08/18 03:48 Urine Protein 30 mg/dL (Neg-Trace) H 03/07/18 16:36 Urine Blood Trace (Negative) H 03/07/18 16:36 Diabetes panel 03/08/18 03/08/18 Range/Units 03:48 03:48 Sodium 136 (136-145) mEq/L Potassium 3.9 (3.5-5.1) mEq/L Chloride 99 (98-107) mEq/L Carbon Dioxide 27 (23-29) mEq/L BUN 18 (8-23) mg/dL Creatinine 1.07 (0.70-1.30) mg/dL Glucose 131 H (70-105) mg/dL Hemoglobin A1c 6.0 H ( - 5.6) % Calcium 9.8 (8.6-10.3) mg/dL AST 23 (13-39) Units/L ALT 25 (7-52) Units/L Alkaline Phosphatase 69 (34-104) Units/L Albumin 4.6 (3.5-5.7) g/dL Triglycerides 104 (< 150) mg/dL HDL Cholesterol 52 (40-59) mg/dL Thyroid panel 03/08/18 Range/Units 03:48 TSH 3.908 (0.340-5.600) mcIU/mL Calcium panel 03/08/18 Range/Units 03:48 Calcium 9.8 (8.6-10.3) mg/dL Albumin 4.6 (3.5-5.7) g/dL Pituitary panel 03/08/18 Range/Units 03:48 Sodium 136 (136-145) mEq/L Potassium 3.9 (3.5-5.1) mEq/L Chloride 99 (98-107) mEq/L Carbon Dioxide 27 (23-29) mEq/L BUN 18 (8-23) mg/dL Creatinine 1.07 (0.70-1.30) mg/dL Glucose 131 H (70-105) mg/dL Calcium 9.8 (8.6-10.3) mg/dL TSH 3.908 (0.340-5.600) mcIU/mL Adrenal panel 03/08/18 Range/Units 03:48 Sodium 136 (136-145) mEq/L Potassium 3.9 (3.5-5.1) mEq/L Chloride 99 (98-107) mEq/L Carbon Dioxide 27 (23-29) mEq/L BUN 18 (8-23) mg/dL Creatinine 1.07 (0.70-1.30) mg/dL Glucose 131 H (70-105) mg/dL Calcium 9.8 (8.6-10.3) mg/dL Total Bilirubin 0.8 (0.3-1.0) mg/dL AST 23 (13-39) Units/L ALT 25 (7-52) Units/L Alkaline Phosphatase 69 (34-104) Units/L Albumin 4.6 (3.5-5.7) g/dL All other labs normal. - Imaging Additional studies: MRI brain, MRA neck - reports were reviewed in detail with the patient. The patient has mild ischemic small vessel disease but his carotid and vestibular arteries are normal. CT head shows no evidence of chronic sinusitis or acute sinusitis. There are no intracranial lesions. Consult Discharge Plan - Plan Referrals: [facility] [place],Kj Colon MD [Primary Care Provider] -
[2018-03-09] MEDS: *HR* Heparin 5,000 UNIT/ML VIAL SQ SCH (05:01)
[2018-03-09 07:35] VITALS: BP 107/68
[2018-03-09] MEDS: Lisinopril 20 MG TABLET PO SCH (09:01)
[2018-03-09] MEDS: Aspirin Enteric Coated 81 MG Tablet PO SCH (09:01)
[2018-03-09] MEDS: amLODIPine 5 MG TABLET PO SCH (09:01)
--- NOTE | 2018-03-09 10:38 | Discharge Summary ---
- NOTES TO OUTPATIENT PROVIDER Notes to Outpatient Provider: f/u with ENT within a week for audiogram. appointment with outpatient vestibular rehab within a week. F/u with PCP as needed. Date of Encounter: 03/09/18 Time of Encounter: 10:36 - Discharge Diagnosis (1) Nephrolithiasis Priority: Secondary Status: Chronic (2) Dizziness Priority: Primary Status: Acute (3) Hypertension Priority: Secondary Status: Chronic Qualifiers: Hypertension type: essential hypertension Qualified Code(s): I10 - Essential (primary) hypertension (4) Hyperlipidemia Priority: Secondary Status: Chronic Qualifiers: Hyperlipidemia type: unspecified Qualified Code(s): E78.5 - Hyperlipidemia , unspecified (5) DVT prophylaxis Priority: Primary Status: Acute Hospital course: Jonn Moreno is a 77-year-old man with a history of hyperlipidemia, hypertension and nephrolithiasis who presents to the emergency room with a complaint of dizziness. States that he has been having dizziness and vertigo for many months starting this year but cannot specify when exactly it commenced. He says he initially since that the room was spinning and cannot specify for how long it lasts but is usually accompanied by a weird sensation in his stomach as well. He does feel as though it worsens with positional movements of his head and neck moving side to side in bed and sometimes when getting up from bed as well. He denies associated chest pain, dyspnea or diaphoresis. He denies a history of smoking use or illicit drug use. Surgical history remarkable for bilateral rotator cuff repair and herniorrhaphy. No psychiatric history obtained. He denies any history of heart disease or cerebrovascular disease in the past. Neurology was consulted, brain MRI showed no acute infarct, MRA of neck and brain both revealed patent intracranial and extracranial blood vessels. ENT was consulted. It was determined that BPPV is less likely, neither is Meniere' s disease. 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 Vestibular rehabilitation/occupational therapy was recommended by ENT. Appointment was made for patient. Patient also was instructed to follow up with ENT for audiogram/hearing loss. He will be discharged home today. Discharge discussed with: patient, family Time spent discussing smoking cessation with patient: more than 10 minutes - Time Spent with Patient Total time spent providing and/or coordinating discharge services: Greater than 30 minutes - Discharge Medications Prescriptions: Ondansetron ODT [Zofran ODT] 4 mg SL Q6HR PRN #15 tab.rapdis PRN Reason: Nausea And Vomiting Meclizine [Antivert] 25 mg PO TID PRN #30 tablet PRN Reason: Dizziness Home Medications: Aspirin [Lo-Dose Aspirin EC] 81 mg PO DAILY 03/07/18 [History] Atenolol [Tenormin] 50 mg PO DAILY 03/07/18 [History] Enalapril Maleate [Vasotec] 20 mg PO DAILY 03/07/18 [History] Omeprazole [PriLOSEC] 20 mg PO DAILY PRN 03/07/18 [History] Rosuvastatin Calcium [Crestor] 10 mg PO DAILY 03/07/18 [History] amLODIPine [Norvasc] 5 mg PO DAILY 03/07/18 [History] Tamsulosin HCl 0.4 mg PO DAILY 03/08/18 [History] Meclizine [Antivert] 25 mg PO TID PRN #30 tablet 03/09/18 [Rx] Ondansetron ODT [Zofran ODT] 4 mg SL Q6HR PRN #15 tab.rapdis 03/09/18 [Rx] Allergies/Adverse Reactions: 3 Allergy/AdvReac Type Severity Reaction Status Date / Time ampicillin Allergy Hives Verified 03/07/18 22:19 Penicillins Allergy Hives Verified 03/07/18 22:19 Date of admission: 03/07/18 19:38 Primary care physician: Kj Rodríguez MD Consults: 03/07/18 20:09 Consult to Neurology [CONS] Routine Consulting Provider: [facility] Reason for Consult: Longstanding dizziness of unclear etiology. Call Completed: No 03/08/18 09:18 Consult to ENT [CONS] Routine Consulting Provider: [facility] Reason for Consult: Vertigo. Call Completed: No Anticipated date of discharge: 03/09/18 - Constitutional Vitals: Temp Pulse Resp BP Pulse Ox 97.7 F 60 16 107/68 95 03/09/18 07:34 03/09/18 07:34 03/09/18 07:34 03/09/18 07:34 03/09/18 09:00 General appearance: Present: A&O X 3, answers questions appropriately Exam: General: Patient is alert, oriented x4, no acute distress Head: atraumatic, normocephalic, Eye: normal appearance, PERRL, no scleral icterus, no conjunctival injection ENT: mucous membranes moist, normal external ear exam Neck: normal inspection, trachea midline, full ROM, no carotid bruits Respiratory: Clear to auscultation bilaterally, no wheezing, rales or crackles. Cardiovascular: RRR, normal s1 and s2, No rubs, gallops, or murmors. Abdomen: Obese, Bowel sounds present normoactive x-4 quadrants. Abdomen is soft , nondistended. No guarding or rebound. Musculoskeletal: Spontaneously moving all extremities. no edema, no calf tenderness Neuro: Alert and oriented x4. Cranial nerves 2-12 is intact. Not aphasic, gait is steady, rapid hand movements intact, [id number] intact. Psych: Patient's affect is normal - Patient Status Disposition: Home, Self-Care Condition: Good Functional capacity at discharge: independent ambulation Overall status at discharge: patient is progressing back to baseline - Discharge Instructions Instructions: Vertigo (DC), Vertigo (GEN), Chronic Hypertension (DC) Follow Up With: Kj Rodríguez MD [Primary Care Provider] - - Diet and Activity Activity: increase activity as tolerated Diet: advance to your usual diet
--- NOTE | 2018-03-10 21:40 | Electrocardiograph Report ---
[place] [id number] Test Date: 2018-03-07 Pat Name: Jonn Moreno Department: EXAM5 Room: 3B24 Gender: M [employer]: : [id number] Requested By: Aguilar Woodruff Order Number: [id number] Reading MD: Vlad Chao Measurements Intervals Lyman Rate: 65 P: 12 MS: 162 QRS: -15 QRSD: 105 T: 0 QT: 408 QTc: 425 Interpretive Statements Sinus rhythm Borderline left axis deviation Electronically Signed On 03-10-2018 21:38:50 EDT by Vlad Chao
== END 2018-03-09 11:22 | disposition home or self-care (01) ==
LOC: 3BNU 15:23 → EMEROOARM 15:23 → SUATTDRO 19:38 → 3BNU 20:26
PROVIDERS: ADMIT Internal Medicine; ATTEND Internal Medicine